=== PATIENT | male | born 1945 | race Caucasian/White ===

== ENCOUNTER → 2023-12-25 | Outpatient (CLI) | payer MEDICARE | LOC: MHCPAIN 14:57 | DX: M47.816 Spondylosis without myelopathy or radiculopathy, lumbar region (principal); M48.061 Spinal stenosis, lumbar region without neurogenic claudication; M25.552 Pain in left hip; M16.0 Bilateral primary osteoarthritis of hip | CPT/HCPCS: G0463 ==